=== PATIENT | female | born 1960 | race Caucasian/White ===

== ENCOUNTER 2017-03-11 06:36 | Emergency (ER) | payer BC ==
[~2017-03-11] VITALS: Ht 162.6 cm; Wt 62.9 kg
[~2017-03-11 06:36] MED LIST: BUSP10TA11 PO; INDLA80C PO; METF500T4 PO; PANT-47 PO; POTA10TA19 PO; SERT100T10 PO; SPIR50TA3 PO; THY15T PO
[2017-03-11] MEDS ORDERED: normal saline 1000ML IV soln IVB ONE (07:10)
[2017-03-11 07:17] LABS: CLARITY,URINE CLEAR (Clear); COLOR,URINE YELLOW (Yellow); GLUCOSE, URINE NEGATIVE (Neg); KETONES,URINE NEGATIVE (Neg); LEUKOCYTE ESTERASE ,URINE SMALL (Neg); NITRITES, URINE NEGATIVE (Neg); OCCULT BLOOD,URINE TRACE-INTACT (Neg); PROTEIN,URINE NEGATIVE (Neg); UA COLLECTION TYPE CLN CATCH MIDSTREAM; UROBILINOGEN,URINE 0.2 E.U/dL (0.2-1.0)
[2017-03-11 07:29] LABS: BACTERIA,URINE FEW /HPF (Neg); RBC,URINE 0-2 /HPF (0-2); SQUAMOUS EPITHELIAL CELL,UR FEW /LPF (FEW); WBC,URINE 0-4 /HPF (0-4)
[2017-03-11 07:45] LABS: BASOPHILS # (AUTO) 0.1 X10'3 (0-0.2); BASOPHILS % (AUTO) 0.7 % (0-1); EOSINOPHILS # (AUTO) 0.5 X10'3 (0-0.9); HEMATOCRIT 33.9 % (35.0-45.0); HEMOGLOBIN 11.3 g/dl (12.0-16.0); LYMPHOCYTES # (AUTO) 0.7 X10'3 (1.1-4.8); LYMPHOCYTES % (AUTO) 9.1 % (21-51); MEAN CORPUSCULAR HEMOGLOBIN 27.5 PG (27.0-31.0); MEAN CORPUSCULAR HGB CONC 33.2 % (33.0-36.5); MEAN CORPUSCULAR VOLUME 82.7 FL (78-98); MEAN PLATELET VOLUME 7.2 FL (7.4-10.4); MONOCYTES # (AUTO) 0.5 X10'3 (0-0.9); MONOCYTES % (AUTO) 6.7 % (2-12); NEUTROPHILS # (AUTO) 6.2 X10'3 (1.8-7.7); NEUTROPHILS % (AUTO) 77.5 % (42-75); PLATELET COUNT 206 X10'3 (140-440); RED CELL DISTRIBUTION WIDTH 17.9 % (11.5-14.5); WHITE BLOOD COUNT 8.1 X10'3 (4.5-11.0)
[2017-03-11 07:57] LABS: INR 1.1 INR; PROTHROMBIN TIME 11.4 SECONDS (9.0-12.0)
[2017-03-11 08:01] LABS: ALANINE AMINOTRANSFERASE 34 U/L (12-78); ALBUMIN 3.5 G/DL (3.4-5.0); ALBUMIN/GLOBULIN RATIO 0.9 (1.1-1.5); ALKALINE PHOSPHATASE 93 IU/L (46-116); ANION GAP 10 (8-16); ASPARTATE AMINO TRANSFERASE 36 U/L (10-37); BILIRUBIN,TOTAL 0.4 MG/DL (0.1-1.0); BLOOD UREA NITROGEN 20 MG/DL (7-18); BUN/CREATININE RATIO 20.2 (6.6-38.0); CALCIUM 9.9 MG/DL (8.5-10.1); CHLORIDE 106 MMOL/L (99-107); CREATININE 0.99 MG/DL (0.40-0.90); ETHANOL < 0.010 GM/DL (0.0-0.010); GLUCOSE 130 MG/DL (70-104); LIPASE 181 U/L (73-393); MAGNESIUM 1.4 MG/DL (1.5-2.4); POTASSIUM 3.9 MMOL/L (3.5-5.1); SODIUM 142 MMOL/L (135-145); TOTAL CARBON DIOXIDE 26.2 MMOL/L (24-32); TOTAL PROTEIN 7.4 G/DL (6.4-8.2); eGFR 58 ML/MIN
[2017-03-11] MEDS ORDERED: ONDA8TAB9 PO (09:20)
[2017-03-11 09:36] VITALS: BP 116/57
== END 2017-03-11 09:38 | disposition home or self-care (01) ==
LOC: ER 06:37
DX: R10.11 Right upper quadrant pain (principal); R11.2 Nausea with vomiting, unspecified; I10 Essential (primary) hypertension; E11.9 Type 2 diabetes mellitus without complications; Z79.84 Long term (current) use of oral hypoglycemic drugs; Z79.899 Other long term (current) drug therapy; Z88.0 Allergy status to penicillin; Z88.1 Allergy status to other antibiotic agents
CPT/HCPCS: 36415; 76700; 80053; 80320; 81001; 83690; 83735; 84100; 85025; 85610; 87077; 87088; 87186; 96360; 96361; 99285; J7030

== ENCOUNTER 2017-10-02 12:46 | Day surgery (SDC) | payer OTHER ==
[~2017-10-02] VITALS: Ht 162.6 cm; Wt 61.8 kg
[~2017-10-02 12:46] MED LIST changes: +METF-436 PO; -METF500T4 PO; +ONDA8TAB9 PO; -SPIR50TA3 PO; +SPIR50TA5 PO
[2017-10-02] MEDS ORDERED: fentaNYL/PF 50MCG/1 ML 2ML syringe ONE (13:01)
[2017-10-02] MEDS ORDERED: LIDOcaine Viscous 15ml cup ONE (13:02)
[2017-10-02] MEDS ORDERED: MIDAZolam 5mg/5ml vial ONE ×2 (13:02→14:05)
[2017-10-02] MEDS ORDERED: DULO-31 PO (13:15)
[2017-10-02] MEDS ORDERED: LORA10TA65 PO (13:15)
[2017-10-02] MEDS ORDERED: NALT50TA PO (13:15)
[2017-10-02 13:28] VITALS: BP 113/78
[2017-10-02 14:25] VITALS: BP 120/66
[2017-10-02 14:35] VITALS: BP 150/71
[2017-10-02 14:45] VITALS: BP 110/69
[2017-10-02 14:55] VITALS: BP 108/69
== END 2017-10-02 14:55 | disposition home or self-care (01) ==
LOC: GI LAB 12:46
PROVIDERS: ATTEND Internal Medicine Gastroenterology
DX: K29.50 Unspecified chronic gastritis without bleeding (principal); I85.00 Esophageal varices without bleeding; K76.6 Portal hypertension; K31.89 Other diseases of stomach and duodenum; M19.90 Unspecified osteoarthritis, unspecified site; I10 Essential (primary) hypertension; E11.9 Type 2 diabetes mellitus without complications; K21.9 Gastro-esophageal reflux disease without esophagitis; F10.21 Alcohol dependence, in remission; Z86.14 Personal history of Methicillin resistant Staphylococcus aureus infection; Z79.84 Long term (current) use of oral hypoglycemic drugs; Z88.1 Allergy status to other antibiotic agents; Z88.0 Allergy status to penicillin; Z88.3 Allergy status to other anti-infective agents; Z91.013 Allergy to seafood; Z87.891 Personal history of nicotine dependence; Z79.899 Other long term (current) drug therapy; Z88.8 Allergy status to other drugs, medicaments and biological substances; Z80.8 Family history of malignant neoplasm of other organs or systems
CPT/HCPCS: 43239; 43244; 99152; 99153; J2250; J3010; J7030; A4620; G0500

== ENCOUNTER 2018-09-17 13:14 | Day surgery (SDC) | payer OTHER ==
[~2018-09-17] VITALS: Ht 157.5 cm; Wt 62.7 kg
[~2018-09-17 13:14] MED LIST changes: +DULO-31 PO; +LORA10TA65 PO; +NALT50TA PO; -ONDA8TAB9 PO
[2018-09-17 13:20] VITALS: BP 124/68
[2018-09-17] MEDS ORDERED: fentaNYL/PF 50MCG/1 ML 2ML syringe ONE (13:34)
[2018-09-17] MEDS ORDERED: MIDAZolam 5mg/5ml vial ONE (13:34)
[2018-09-17] MEDS ORDERED: LIDOcaine Viscous 15ml cup ONE (13:35)
[2018-09-17] MEDS ORDERED: GABA-532 PO (13:52)
[2018-09-17] MEDS ORDERED: PROP40TA7 PO (13:52)
[2018-09-17] MEDS ORDERED: aleve PO (13:53)
[2018-09-17 14:46] VITALS: BP 123/70
[2018-09-17 14:56] VITALS: BP 113/65
[2018-09-17 15:06] VITALS: BP 111/59
== END 2018-09-17 15:17 | disposition home or self-care (01) ==
LOC: GI LAB 13:14
PROVIDERS: ATTEND Internal Medicine Gastroenterology
DX: I85.00 Esophageal varices without bleeding (principal); K22.8 Other specified diseases of esophagus; K76.6 Portal hypertension; K29.70 Gastritis, unspecified, without bleeding; K31.89 Other diseases of stomach and duodenum; D50.9 Iron deficiency anemia, unspecified
CPT/HCPCS: 43239; J2250; J3010; J7030; 99152; A4620; J7040

== ENCOUNTER 2022-04-18 14:52 | Day surgery (SDC) | payer BC, OTHER ==
[2022-04-13 15:33] LABS: BASOPHILS # (AUTO) 0.1 X10'3 (0-0.2); BASOPHILS % (AUTO) 1.3 % (0-1); EOSINOPHILS # (AUTO) 0.4 X10'3 (0-0.9); EOSINOPHILS % (AUTO) 9.2 % (0-6); HEMATOCRIT 36.2 % (35.0-45.0); HEMOGLOBIN 11.9 g/dl (12.0-16.0); LYMPHOCYTES # (AUTO) 0.8 X10'3 (1.1-4.8); LYMPHOCYTES % (AUTO) 18.2 % (21-51); MEAN CORPUSCULAR HEMOGLOBIN 27.1 PG (27.0-31.0); MEAN CORPUSCULAR HGB CONC 32.8 g/dL (33.0-36.5); MEAN CORPUSCULAR VOLUME 82.6 FL (78-98); MEAN PLATELET VOLUME 7.6 FL (7.4-10.4); MONOCYTES # (AUTO) 0.3 X10'3 (0-0.9); MONOCYTES % (AUTO) 6.5 % (2-12); NEUTROPHILS % (AUTO) 64.8 % (42-75); PLATELET COUNT 172 X10'3 (140-440); RED BLOOD COUNT 4.39 X10'6 (4.20-5.60); RED CELL DISTRIBUTION WIDTH 16.2 % (11.5-14.5); WHITE BLOOD COUNT 4.6 X10'3 (4.5-11.0)
[2022-04-13 15:38] LABS: ALBUMIN 4.4 G/DL (3.4-5.0); ANION GAP 8 (8-16); BLOOD UREA NITROGEN 18 MG/DL (7-18); BUN/CREATININE RATIO 17.5 (6.6-38.0); CALCIUM 10.1 MG/DL (8.5-10.1); CHLORIDE 103 MMOL/L (99-107); CREATININE 1.03 MG/DL (0.40-0.90); GLUCOSE 107 MG/DL (70-104); POTASSIUM 4.2 MMOL/L (3.5-5.1); SODIUM 138 MMOL/L (135-145); TOTAL CARBON DIOXIDE 26.7 MMOL/L (24-32); eGFR 54 ML/MIN
[2022-04-13 15:42] LABS: APTT 27 SECONDS (22-32)
[~2022-04-18] VITALS: Ht 157.5 cm; Wt 67.1 kg
[2022-04-18] VITALS (8 sets, daily range): BP systolic 105–122; BP diastolic 52–69
[~2022-04-18 14:52] MED LIST changes: -DULO-31 PO; +GABA-532 PO; -NALT50TA PO; -POTA10TA19 PO; +PROP40TA7 PO; +SERT-434 PO; -SERT100T10 PO; -SPIR50TA5 PO; +aleve PO
[2022-04-18] MEDS ORDERED: nitroGLYCERIN-Tridil 50MG/D5W 250 ML IV ONE (15:15)
[2022-04-18] MEDS ORDERED: heparin 1,000unit/ml 10ml vial 10 ML ONE (15:15)
[2022-04-18] MEDS ORDERED: iohexol 350MG/ML 100ml bottle IV ONE (15:15)
[2022-04-18] MEDS ORDERED: LIDOcaine 1% (10mg/ml) 2ml vial ONE (15:15)
[2022-04-18] MEDS ORDERED: verapamil 2.5 mg/ml inj IV ONE (15:15)
[2022-04-18] MEDS ORDERED: diphenhydrAMINE 25mg capsule PO PRN (17:05)
[2022-04-18] MEDS ORDERED: LORazepam 0.5 MG tablet PO PRN (17:05)
[2022-04-18] MEDS ORDERED: normal saline 1,000 ML IV SCH (17:05)
[2022-04-18] MEDS ORDERED: DAPA10TA PO (17:18)
[2022-04-18] MEDS ORDERED: ASCO-157 PO (17:18)
[2022-04-18] MEDS ORDERED: CALC-499 PO (17:18)
[2022-04-18] MEDS ORDERED: ATOR10TA70 PO (17:18)
[2022-04-18] MEDS ORDERED: ALLO100T PO (17:18)
[2022-04-18] MEDS ORDERED: VALA500T41 PO (17:18)
[2022-04-18] MEDS ORDERED: THYR90TA PO (17:18)
[2022-04-18] MEDS ORDERED: AMLO-708 PO (17:18)
[2022-04-18] MEDS ORDERED: VITA1TAB20 PO (17:18)
[2022-04-18] MEDS ORDERED: midazolam 1 mg/ML 2ml injection ONE (18:20)
[2022-04-18] MEDS ORDERED: fentaNYL/PF 50MCG/1 ML 2ML syringe ONE (18:20)
[2022-04-18] MEDS ORDERED: LIDOcaine 1% 30ml preserv. free vial ONE (18:24)
[2022-04-18 18:47] LABS: ISTAT HGB ART 11.2 g/dl (12.0-16.0); ISTAT Hct ART 33 %PCV (35-45); ISTAT O2 SATURATION ARTERIAL 93 % (95-98); ISTAT SOURCE ART
[2022-04-18] MEDS ORDERED: pneumococcal 23-VAL P-sac vacc 25 mcg/0.5ml vial IMVAC ONE (19:05)
[2022-04-18] MEDS ORDERED: HYDROcodone/acetaminophen 5mg/325mg tablet PO PRN (19:25)
[2022-04-18] MEDS ORDERED: HYDROcodone/acetaminophen 10/325mg tab PO PRN (19:25)
[2022-04-19 06:23] LABS: ISTAT Hct MIX 34 %PCV (35-45); ISTAT O2 SATURATION MIX VENOUS 68 % (60-80); ISTAT SOURCE VEN
== END 2022-04-18 20:55 | disposition home or self-care (01) ==
LOC: SSTAY O 14:52
PROVIDERS: ATTEND Student in an Organized Health Care Education/Training Program
DX: I35.0 Nonrheumatic aortic (valve) stenosis (principal); I10 Essential (primary) hypertension; E11.9 Type 2 diabetes mellitus without complications; E78.5 Hyperlipidemia, unspecified; F32.A Depression, unspecified; F10.21 Alcohol dependence, in remission; Z85.828 Personal history of other malignant neoplasm of skin; Z88.1 Allergy status to other antibiotic agents; Z88.8 Allergy status to other drugs, medicaments and biological substances; Z91.030 Bee allergy status; Z79.899 Other long term (current) drug therapy; Z79.01 Long term (current) use of anticoagulants; Z23 Encounter for immunization
CPT/HCPCS: 36415; 80048; 82803; 85014; 85025; 85610; 85730; 90471; 90732; 93005; 93456; 99152; A6258; C1751; C1769; C1894; J1644; J2250; J3010; J3490; J7030; Q0163; Q9967; A6402; A6449

== ENCOUNTER 2022-05-20 10:40 | Outpatient (CLI) | payer OTHER ==
[~2022-05-20 10:40] MED LIST changes: +ALLO100T PO; +AMLO-708 PO; +ASCO-157 PO; +ATOR10TA70 PO; +CALC-499 PO; +DAPA10TA PO; -GABA-532 PO; -INDLA80C PO; -METF-436 PO; -THY15T PO; +THYR90TA PO; +VALA500T41 PO; +VITA1TAB20 PO
[2022-05-20 11:26] LABS: BASOPHILS % (AUTO) 1.1 % (0-1); EOSINOPHILS # (AUTO) 0.1 X10'3 (0-0.9); EOSINOPHILS % (AUTO) 4.7 % (0-6); HEMATOCRIT 35.6 % (35.0-45.0); HEMOGLOBIN 11.9 g/dl (12.0-16.0); LYMPHOCYTES # (AUTO) 0.6 X10'3 (1.1-4.8); LYMPHOCYTES % (AUTO) 19.4 % (21-51); MEAN CORPUSCULAR HEMOGLOBIN 28.2 PG (27.0-31.0); MEAN CORPUSCULAR HGB CONC 33.5 g/dL (33.0-36.5); MEAN CORPUSCULAR VOLUME 84.3 FL (78-98); MEAN PLATELET VOLUME 7.2 FL (7.4-10.4); MONOCYTES # (AUTO) 0.2 X10'3 (0-0.9); NEUTROPHILS % (AUTO) 68.8 % (42-75); PLATELET COUNT 117 X10'3 (140-440); RED BLOOD COUNT 4.23 X10'6 (4.20-5.60); RED CELL DISTRIBUTION WIDTH 18.4 % (11.5-14.5); WHITE BLOOD COUNT 2.8 X10'3 (4.5-11.0)
[2022-05-20 11:39] LABS: APTT 29 SECONDS (22-32)
[2022-05-20 11:45] LABS: ALANINE AMINOTRANSFERASE 32 U/L (12-78); ALBUMIN/GLOBULIN RATIO 1.3 (1.1-1.5); ALKALINE PHOSPHATASE 131 IU/L (46-116); ANION GAP 9 (8-16); ASPARTATE AMINO TRANSFERASE 23 U/L (10-37); BILIRUBIN,TOTAL 0.3 MG/DL (0.1-1.0); BLOOD UREA NITROGEN 16 MG/DL (7-18); BUN/CREATININE RATIO 16.7 (6.6-38.0); CALCIUM 8.9 MG/DL (8.5-10.1); CHLORIDE 110 MMOL/L (99-107); CREATININE 0.96 MG/DL (0.40-0.90); GLUCOSE 115 MG/DL (70-104); POTASSIUM 3.9 MMOL/L (3.5-5.1); SODIUM 143 MMOL/L (135-145); TOTAL CARBON DIOXIDE 23.8 MMOL/L (24-32); eGFR 59 ML/MIN
[2022-05-20] MEDS ORDERED: IODIXANOL 320 MG/ML INFUS..BTL 100ML IV ONE (11:50)
[2022-05-20 12:04] LABS: ANISOCYTOSIS 2+; ELLIPTOCYTES 1+; PLATELET ESTIMATE DECREASED; TOTAL CELLS COUNTED 100
[2022-05-20 12:05] LABS: SCHISTOCYTES FEW
== END 2022-05-20 23:59 | disposition home or self-care (01) ==
LOC: RAD 10:40
PROVIDERS: ATTEND Internal Medicine Cardiovascular Disease
DX: Z01.818 Encounter for other preprocedural examination (principal); K74.60 Unspecified cirrhosis of liver; R16.1 Splenomegaly, not elsewhere classified; N20.0 Calculus of kidney; R06.02 Shortness of breath; I35.2 Nonrheumatic aortic (valve) stenosis with insufficiency; I65.29 Occlusion and stenosis of unspecified carotid artery; Z87.891 Personal history of nicotine dependence; Z79.899 Other long term (current) drug therapy
CPT/HCPCS: 36415; 71046; 71275; 74174; 80053; 85007; 85025; 85610; 85730; 94010; 94727; 94729; J3490; Q9967

== ENCOUNTER 2022-07-21 05:18 | Inpatient (IN) | payer OTHER ==
[2022-07-13 11:57] LABS: BASOPHILS % (AUTO) 0.8 % (0-1); EOSINOPHILS # (AUTO) 0.2 X10'3 (0-0.9); EOSINOPHILS % (AUTO) 3.6 % (0-6); LYMPHOCYTES # (AUTO) 0.5 X10'3 (1.1-4.8); LYMPHOCYTES % (AUTO) 11.3 % (21-51); MEAN CORPUSCULAR HEMOGLOBIN 28.6 PG (27.0-31.0); MEAN CORPUSCULAR HGB CONC 33.3 g/dL (33.0-36.5); MEAN CORPUSCULAR VOLUME 85.9 FL (78-98); MEAN PLATELET VOLUME 7.7 FL (7.4-10.4); MONOCYTES # (AUTO) 0.3 X10'3 (0-0.9); MONOCYTES % (AUTO) 7.3 % (2-12); NEUTROPHILS # (AUTO) 3.6 X10'3 (1.8-7.7); PRE OP HEMATOCRIT 37.8 % (35.0-45.0); PRE OP HEMOGLOBIN 12.6 g/dL (12.0-16.0); PRE OP PLATELET COUNT 136 X10'3 (140-440); RED CELL DISTRIBUTION WIDTH 18.9 % (11.5-14.5)
[2022-07-13 12:05] LABS: CLARITY,URINE CLEAR (Clear); COLOR,URINE YELLOW (Yellow); GLUCOSE, URINE >=1000 mg/dl (Neg); KETONES,URINE NEGATIVE (Neg); LEUKOCYTE ESTERASE ,URINE NEGATIVE (Neg); NITRITES, URINE NEGATIVE (Neg); OCCULT BLOOD,URINE SMALL (Neg); PROTEIN,URINE NEGATIVE (Neg)
[2022-07-13 12:07] LABS: UA COLLECTION TYPE CLN CATCH MIDSTREAM
[2022-07-13 12:11] LABS: PRE OP INR 1.1 INR; PRE OP PROTIME 11.6 SECONDS (9.0-12.0)
[2022-07-13 12:14] LABS: BACTERIA,URINE 1+ /HPF (Neg); MUCUS STRANDS FEW /LPF (Neg); SQUAMOUS EPITHELIAL CELL,UR FEW /LPF (FEW); WBC CLUMPS,URINE FEW /HPF (NEGATIVE)
[2022-07-13 12:22] LABS: BLOOD UREA NITROGEN 19 MG/DL (7-18); BUN/CREATININE RATIO 20.9 (10.0-20.0); CHLORIDE 107 MMOL/L (99-107); CREATININE 0.91 MG/DL (0.40-0.90); PRE OP ANION GAP 10 (8-16); PRE OP GLUCOSE 129 MG/DL (70-104); PRE OP POTASSIUM 3.8 MMOL/L (3.4-5.1); PRE OP SODIUM 142 MMOL/L (135-145); TOTAL CARBON DIOXIDE 25.3 MMOL/L (24-32)
[2022-07-13 12:23] LABS: ALBUMIN/GLOBULIN RATIO 1.3 (1.1-1.5); ALKALINE PHOSPHATASE 101 IU/L (46-116); CALCIUM 8.3 MG/DL (8.5-10.1); PRE OP ALT 34 U/L (30-65); PRE OP AST 45 U/L (10-37); PRE OP BILIRUB, TOTAL 0.4 MG/DL (0.0-1.0); eGFR 63 ML/MIN
[2022-07-13 12:24] LABS: ANISOCYTOSIS 2+; ELLIPTOCYTES 1+; PLATELET ESTIMATE DECREASED; TEAR DROP CELLS FEW
[2022-07-13 13:20] LABS: HEMOGLOBIN A1C 6.1 % (4.5-6.2)
[~2022-07-21] VITALS: Ht 157.5 cm; Wt 66.2 kg
[2022-07-21] VITALS (22 sets, daily range): BP systolic 95–142; BP diastolic 49–68
[~2022-07-21 05:18] MED LIST changes: +CALC0.2511 PO; +LEVO125T68 PO; -THYR90TA PO; -VALA500T41 PO; -VITA1TAB20 PO; -aleve PO; +ringers solution, lacted 1,000 ML IV SCH
[2022-07-21] MEDS ORDERED: cefazolin 2gm/D5W 100mL 100 ML IV ONE (05:30)
[2022-07-21] MEDS ORDERED: famotidine 20mg tablet PO ONE (05:30)
[2022-07-21] MEDS ORDERED: ondansetron/PF 4mg/2ml inj IV PRN ×3 (05:30→08:20)
[2022-07-21] MEDS ORDERED: phenylephrine inj 50 MG in normal saline 250ml IV solN IV SCH (05:30)
[2022-07-21] MEDS ORDERED: DOCUMENT DATE & TIME OF BETA-BLOCKER PO ONE (05:30)
[2022-07-21] MEDS ORDERED: aspirin 325mg tablet PO ONE (05:30)
[2022-07-21] MEDS ORDERED: nitroPRUSSIDE (NIPRIDE) (200MCG/ML) 100ML Drip IV SCH (05:30)
[2022-07-21] MEDS ORDERED: vancomycin/NS 1 GM in NS 250 ML IV ONE (05:30)
[2022-07-21] MEDS ORDERED: LIDOcaine 1% (10mg/ml) 2ml vial ONE ×2 (06:21→07:02)
[2022-07-21] MEDS ORDERED: iohexol 350MG/ML 100ml bottle IV ONE (06:24)
[2022-07-21] MEDS ORDERED: LIDOcaine 1% (10mg/ml)w/preservative inj. 20ml MDV ONE (06:24)
[2022-07-21] MEDS ORDERED: heparin 1,000 UNITS/NS 500ml 1,500 ML ONE (06:28)
[2022-07-21] MEDS ORDERED: protamine sulfate 10mg/ml inj. ONE (06:32)
[2022-07-21] MEDS ORDERED: LIDOcaine 1% 30ml preserv. free vial ONE (06:53)
[2022-07-21] MEDS ORDERED: midazolam 1 mg/ML 2ml injection ONE (07:07)
[2022-07-21] MEDS ORDERED: fentaNYL/PF 50MCG/1 ML 2ML syringe ONE (07:07)
[2022-07-21] MEDS ORDERED: propofol inj 20 ML IV ONE ×2 (07:07)
[2022-07-21] MEDS ORDERED: heparin 1,000unit/ml 10ml vial 10 ML ONE (07:11)
[2022-07-21] MEDS ORDERED: ringers solution, lacted 1,000 ML IV SCH (07:55)
[2022-07-21] MEDS ORDERED: morphine 4 MG/ML inj SYRINge IV PRN (07:55)
[2022-07-21] MEDS ORDERED: meperidine/PF 25mg/ml syringe IV PRN ×3 (07:55)
[2022-07-21] MEDS ORDERED: proCHLORperazine 10 MG/2 ml inj IV PRN ×2 (07:55→08:20)
[2022-07-21] MEDS ORDERED: morphine 2 MG/ML inj. syringe IV PRN (07:55)
[2022-07-21] MEDS ORDERED: amLODIPine 5mg tablet PO SCH (08:00)
[2022-07-21] MEDS ORDERED: levoTHYROXINE 125mcg tablet PO SCH (08:00)
[2022-07-21] MEDS ORDERED: VITAMIN D3 PO SCH (08:00)
[2022-07-21] MEDS ORDERED: pantoprazole 40mg Tablet.DR PO SCH (08:00)
[2022-07-21] MEDS ORDERED: CALCIUM CITRATE PO SCH (08:00)
[2022-07-21] MEDS ORDERED: ascorbic acid 500mg tablet PO SCH (08:00)
[2022-07-21] MEDS ORDERED: loratadine 10mg tablet PO SCH (08:00)
[2022-07-21] MEDS ORDERED: hydrALAZINE 20mg/ml inj. IV PRN (08:20)
[2022-07-21] MEDS ORDERED: ALPRAZolam 0.25mg tablet PO PRN (08:20)
[2022-07-21] MEDS ORDERED: potassium CL 10mEq/100ml bag 100 ML IV PRN (08:20)
[2022-07-21] MEDS ORDERED: diphenhydrAMINE 25mg capsule PO PRN (08:20)
[2022-07-21] MEDS ORDERED: potassium Cl 20mEq/100mL bag 100 ML IV PRN (08:20)
[2022-07-21] MEDS ORDERED: labetalol 20mg/4ml (5mg/ml) syringe IV PRN (08:20)
[2022-07-21] MEDS ORDERED: potassium Cl 40MEQ/270ML bag 250 ML IV PRN (08:20)
[2022-07-21] MEDS ORDERED: potassium Cl 40MEQ/1/2NS 520ml 520 ML IV PRN (08:20)
[2022-07-21] MEDS ORDERED: docusate sod 100mg capsule PO PRN (08:20)
[2022-07-21] MEDS ORDERED: potassium Cl 20 mEq SR tablet PO PRN (08:20)
[2022-07-21] MEDS ORDERED: magnesium 2GM in 50ml NS 50 ML IV PRN (08:20)
[2022-07-21] MEDS ORDERED: magnesium 4gm in 100ml NS 100 ML IV PRN (08:20)
[2022-07-21] MEDS ORDERED: acetaminophen 325mg tablet PO PRN (08:20)
[2022-07-21] MEDS ORDERED: pantoprazole 40mg Tablet.DR PO PRN (08:20)
[2022-07-21] MEDS ORDERED: normal saline 1000ml 1,000 ML IV SCH (08:20)
--- NOTE | 2022-07-21 08:26 | NUR ---
Received from OR via HOSPITAL BED TO RR 5 , accompanied by Anesthesiologist DR FLETCHER and report given by Anesthesiolgist. PT PRESENTS WITH PIV 20G R WRIST, ART LINE LEFT WRIST, LR RUNNING AT 100MLS/HR, SPO2 100% RA, NEURO CHECK, PALPABLE PEDAL PULSES. Addendum: 07/21/22 at 0848 by Isa Davidson RN, RN Amended: Links added.
--- NOTE | 2022-07-21 09:30 | NUR ---
ART LINE REMOVED FROM LEFT WRIST, PT TOLERATED WELL. 2X2 WITH COBAN WRAP. Addendum: 07/21/22 at 1034 by Isa Davidson RN, RN Amended: Links added.
--- NOTE | 2022-07-21 09:46 | NUR ---
Report called to receiving nurse BRENDA JOYCE. Transferred via HOSPITAL BED TO RRON 3024A. BED IN LOW LOCKED POSITIONS WITH CALL LIGHT IN REACH, PT HOOKED UP TO TELE BOX. Belongings SENT TO ROOM 3024A 2 PT BELONGINGS. Special Issues communicated to receiving nurse. Addendum: 07/21/22 at 0959 by sIa Davidson RN, RN Amended: Links added.
[2022-07-21] MEDS: ceFAZolin 1GM/D5W- ADD-VANTAGE 50 ML IV SCH (16:00)
[2022-07-21] MEDS: sod chloride 0.9% 10ml flush syringe IV SCH (16:00)
--- NOTE | 2022-07-21 18:00 | NUR ---
Patient in room PCU 3024. I have received report from Catalino JOYCE and had the opportunity to ask questions and assume patient care.
[2022-07-21] MEDS: busPIRone 5mg tablet PO SCH (20:33)
[2022-07-21] MEDS: vancomycin/NS 1 GM ADD-VANTAGE 250 ML IV SCH (20:33)
[2022-07-21] MEDS: HYDROcodone/acetaminophen 5mg/325mg tablet PO PRN (20:35)
[2022-07-21] MEDS ORDERED: sertraline 50mg tablet PO SCH (21:00)
[2022-07-21] MEDS ORDERED: allopurinol 100mg tablet PO SCH (21:00)
[2022-07-21] MEDS ORDERED: propranolol 40mg tablet PO SCH (21:00)
[2022-07-21] MEDS ORDERED: atorvastatin 10mg tablet PO SCH (21:00)
[2022-07-22] MEDS: ceFAZolin 1GM/D5W- ADD-VANTAGE 50 ML IV SCH ×2 (01:51→08:31)
[2022-07-22] MEDS: HYDROcodone/acetaminophen 5mg/325mg tablet PO PRN ×2 (01:51→08:32)
[2022-07-22 02:00] VITALS: BP 58/49
[2022-07-22 06:06] VITALS: BP 91/47
--- NOTE | 2022-07-22 06:48 | NUR ---
Problems reprioritized. Patient report given, questions answered & plan of care reviewed with Gareth JOYCE.
[2022-07-22 07:10] LABS: BASOPHILS % (AUTO) 0.9 % (0-1); EOSINOPHILS # (AUTO) 0.2 X10'3 (0-0.9); EOSINOPHILS % (AUTO) 3.6 % (0-6); HEMATOCRIT 37.7 % (35.0-45.0); HEMOGLOBIN 12.7 g/dl (12.0-16.0); LYMPHOCYTES # (AUTO) 0.7 X10'3 (1.1-4.8); LYMPHOCYTES % (AUTO) 14.9 % (21-51); MEAN CORPUSCULAR HEMOGLOBIN 28.8 PG (27.0-31.0); MEAN CORPUSCULAR HGB CONC 33.7 g/dL (33.0-36.5); MEAN CORPUSCULAR VOLUME 85.4 FL (78-98); MONOCYTES # (AUTO) 0.5 X10'3 (0-0.9); MONOCYTES % (AUTO) 10.9 % (2-12); NEUTROPHILS # (AUTO) 3.3 X10'3 (1.8-7.7); NEUTROPHILS % (AUTO) 69.7 % (42-75); PLATELET COUNT 136 X10'3 (140-440); RED BLOOD COUNT 4.41 X10'6 (4.20-5.60); WHITE BLOOD COUNT 4.7 X10'3 (4.5-11.0)
[2022-07-22 07:38] LABS: ALANINE AMINOTRANSFERASE 21 U/L (12-78); ALBUMIN 3.7 G/DL (3.4-5.0); ALBUMIN/GLOBULIN RATIO 1.2 (1.1-1.5); ALKALINE PHOSPHATASE 87 IU/L (46-116); ANION GAP 8 (8-16); ASPARTATE AMINO TRANSFERASE 29 U/L (10-37); BILIRUBIN,TOTAL 0.5 MG/DL (0.1-1.0); BLOOD UREA NITROGEN 16 MG/DL (7-18); CALCIUM 9.3 MG/DL (8.5-10.1); CHLORIDE 104 MMOL/L (99-107); GLUCOSE 104 MG/DL (70-104); MAGNESIUM 2.2 MG/DL (1.5-2.4); POTASSIUM 4.1 MMOL/L (3.5-5.1); SODIUM 140 MMOL/L (135-145); TOTAL CARBON DIOXIDE 27.7 MMOL/L (24-32); TOTAL PROTEIN 6.8 G/DL (6.4-8.2); eGFR 56 ML/MIN
[2022-07-22] MEDS ORDERED: pantoprazole 40mg Tablet.DR PO SCH (08:00)
[2022-07-22] MEDS ORDERED: ascorbic acid 500mg tablet PO SCH (08:00)
[2022-07-22] MEDS ORDERED: amLODIPine 5mg tablet PO SCH (08:00)
[2022-07-22] MEDS ORDERED: loratadine 10mg tablet PO SCH (08:00)
[2022-07-22] MEDS ORDERED: levoTHYROXINE 125mcg tablet PO SCH (08:00)
[2022-07-22] MEDS ORDERED: calcitriol 0.25mcg capsule PO SCH (08:00)
[2022-07-22] MEDS ORDERED: aspirin 81mg tab.chew PO SCH (08:30)
[2022-07-22] MEDS: vancomycin/NS 1 GM ADD-VANTAGE 250 ML IV SCH (08:31)
[2022-07-22] MEDS: sod chloride 0.9% 10ml flush syringe IV SCH ×2 (08:33)
[2022-07-22] MEDS: busPIRone 5mg tablet PO SCH (08:34)
[2022-07-22] MEDS ORDERED: ASPI81TA53 PO (10:36)
[2022-07-22 11:12] VITALS: BP 112/43
== END 2022-07-22 14:19 | disposition home or self-care (01) | DRG 266 ==
LOC: PAS IN 05:18 → PCU 3S 10:24
PROVIDERS: ADMIT Internal Medicine Cardiovascular Disease; ATTEND Internal Medicine Cardiovascular Disease
PROC: B41D1ZZ Fluoroscopy of Aorta and Bilateral Lower Extremity Arteries using Low Osmolar Contrast (ICD-10-PCS; 2022-07-21)
PROC: 02RF38Z Replacement of Aortic Valve with Zooplastic Tissue, Percutaneous Approach (ICD-10-PCS; principal; 2022-07-21 07:09)
DX: I35.0 Nonrheumatic aortic (valve) stenosis (principal); Z00.6 Encounter for examination for normal comparison and control in clinical research program; I50.33 Acute on chronic diastolic (congestive) heart failure; E11.9 Type 2 diabetes mellitus without complications; E78.5 Hyperlipidemia, unspecified; I11.0 Hypertensive heart disease with heart failure; K70.30 Alcoholic cirrhosis of liver without ascites; K70.40 Alcoholic hepatic failure without coma; R00.1 Bradycardia, unspecified; R55 Syncope and collapse; Z79.899 Other long term (current) drug therapy
CPT/HCPCS: 33361; 36415; 71045; 71046; 76937; 80053; 81001; 82948; 83036; 83735; 83880; 84443; 85008; 85025; 85347; 85610; 85730; 86885; 86900; 86901; 86920; 87081; 87088; 93005; 93308; A4615; A4618; A6258; A6449; C1756; C1760; C1769; C1894; G0378; J0690; J1644; J2250; J2370; J2704; J2720; J3010; J3370; J3475; J3490; J7030; J7040; J7050; J7120; Q9967

== ENCOUNTER → 2023-06-16 | Outpatient (CLI) | payer OTHER ==
[~2023-06-16] MED LIST changes: +ASPI81TA53 PO; -ringers solution, lacted 1,000 ML IV SCH
== END | disposition home or self-care (01) ==
LOC: MRI 08:43
PROVIDERS: ATTEND Anesthesiology Pain Medicine
DX: M47.812 Spondylosis without myelopathy or radiculopathy, cervical region (principal); M48.02 Spinal stenosis, cervical region; M75.41 Impingement syndrome of right shoulder; G89.4 Chronic pain syndrome; M25.78 Osteophyte, vertebrae
CPT/HCPCS: 72141

== ENCOUNTER 2024-12-20 08:42 | Emergency (ER) | payer MEDICARE, OTHER ==
[~2024-12-20] VITALS: Ht 157.5 cm; Wt 49.6 kg
[2024-12-20 08:46] VITALS: BP 142/46; PULSE 66; RESP 18; O2SAT 100
--- NOTE | 2024-12-20 09:18 | Physician Documentation ---
History of Present Illness ~ Chief Complaint: Bite-insect Stated Complaint: INSECT BITE Time Seen by MD: 08:58 Primary Medical Doctor: Dr. Nikki Polanco MD Source: patient Mode of Arrival: POV Exam Limitations: no limitations HPI 64-year-old female with what she believes to be a bug bite to the anterior right shoulder she noticed Monday night she has seen her primary care provider yesterday who tried to collect a culture she was started on antibiotics but was instructed to go to the ER if it got any worse. Patient is unaware of what antibiotics she started. Patient is unaware of what could have bitten her shoulder. Tetanus within 5 years?: No Medication Reconciliation Allergies: Coded Allergies: bee venom protein (honey bee) (Unverified Allergy, Severe, anaphylaxis, 12/20/24) amoxicillin (Verified Allergy, Mild, RASH, 12/20/24) celecoxib (Verified Allergy, Mild, HIVES, 12/20/24) Scheduled Allopurinol* (Zyloprim*), 1 TAB PO QPM, (Reported) Amlodipine Besylate (Amlodipine Besylate), 1 TAB PO QAM, (Reported) Ascorbic Acid (Vitamin C), 1 TAB PO DAILY, (Reported) Aspirin (Children's Aspirin), 81 MG PO Q24H@0830 Atorvastatin Calcium (Atorvastatin Calcium), 1 TAB PO HS, (Reported) Buspirone Hcl* (Buspar*), 1 TAB PO BID, (Reported) Calcitriol (Calcitriol), 1 CAP PO QAM, (Reported) Calcium Citrate/Vitamin D3 (Citracal + D Caplet), 2 TAB PO DAILY, (Reported) Dapagliflozin Propanediol (Farxiga), 1 TAB PO QAM, (Reported) Levothyroxine Sodium (Levoxyl), 1 TAB PO QAM, (Reported) Loratadine (Claritin), 10 MG PO DAILY, (Reported) Pantoprazole Sodium (PROTONIX tablet), 1 TAB PO QAM, (Reported) Propranolol Hcl (Propranolol Hcl), 1 TAB PO QPM, (Reported) Sertraline HCl (Sertraline HCl), 1 TAB PO QPM, (Reported) Past Medical History Past Medical History: Hypertension, Cirrohsis, Pancreatitis, Diabetes, Arthritis Past Surgical History: noncontributory Patient History: (CAD) Coronary arteriosclerosis FATHER, , Age: 69, Cause: Heart disease, Onset:60 years & older (CVA) Cerebrovascular accident MOTHER, , Age: 58, Cause: Lung cancer, Onset:50's - 60 (Cancer) Malignant carcinoid tumor MOTHER, , Age: 58, Cause: Lung cancer, Onset:60 years & older Alcohol Use: Heavy Drug Use: none Lives with: Family Lives In: Home Occupation: employed Review of Systems All Other Systems at this time: Reviewed and Negative Integumentary: Reports: see HPI Physical Exam Vital Signs: RN Vital Signs have been reviewed: Yes, Temperature: 98.1, Source: Oral, Heart Rate: 66, Respiratory Rate: 18, BP: 142/46, Pulse Oximetry: 100, Weight: 49.600 Oxygen Flow Rate: 0 Physical Exam General: Alert, no apparent distress. HEENT: moist mucous membranes. Neck: Full range of motion. Respiratory: No respiratory distress speaking in full sentences Chest: No accessory muscle use. Cardiovascular: Appears well perfused Neurologic: Oriented x4. Psychiatric: Normal mood and affect. Skin: 6 x 4 cm carbuncle appearing abscess to the right anterior shoulder minimal drainage. With surrounding erythema Procedures I & D Procedure : Site: Right shoulder Anesthesia: Lidocaine w/ Epi Volume Anesthetic (mls): 5 Blade Size: 11 Prep/Supplies: betadine prep, irrigated Incision: pus drained, blood drained Tolerated Procedure Well?: yes, no complications Progress Results/Orders Results/Orders Orders - CELESTE PAULSON NP Laceration/I&D Tray Set Up (12/20/24 09:15) Completed Orders - CELESTE PAULSON COUNSELING PSYCHOLOGIST Lidocaine 1% W/Epi 1:100,000 (Xylocaine (12/20/24 09:15) Vital Signs 12/20/24 08:46 Temp 98.1 Pulse 66 Resp 18 B/P (MAP) 142/46 Pulse Ox 100 O2 Flow Rate 0 Medical Decision Making Findings Abscess to right shoulder minimal draining I and D performed pus draining open carbuncle no packing patient will take doxycycline which was prescribed by her primary care yesterday patient will follow up with primary care on Monday Departure Time of Disposition: 10:43 Disposition: 01 HOME / SELF CARE / HOMELESS Impression: Primary Impression: Insect bites Additional Impression: Abscess Discharge Instructions: Insect Bite, Adult, [id number] Additional Instructions: Follow up with primary care for continuation of monitoring abscess. Take antibiotics as prescribed Referrals: NO PRIMARY CARE PROVIDER (PCP) Education Educated: Patient Educated regarding: diagnosis, treatment, need for follow up Signature Scribe Signature: No scribe Attestation: The note accurately reflects work and decisions made by me.Celeste Paulson - ART MANAGER 12/20/24 09:26 CELESTE PAULSON NP Dec 20, 2024 09:17
[2024-12-20] MEDS: LIDOcaine 1% W/epiNEPHrine 1:100,000 20ml vial IJ ONE (10:08)
[2024-12-20 10:45] VITALS: TEMP 98.1
== END 2024-12-20 10:48 | disposition home or self-care (01) ==
LOC: ER 08:42
DX: L02.413 Cutaneous abscess of right upper limb (principal); S41.051A Open bite of right shoulder, initial encounter; E11.9 Type 2 diabetes mellitus without complications; I10 Essential (primary) hypertension; I25.10 Atherosclerotic heart disease of native coronary artery without angina pectoris; M19.90 Unspecified osteoarthritis, unspecified site; F10.90 Alcohol use, unspecified, uncomplicated; Z91.030 Bee allergy status; Z87.19 Personal history of other diseases of the digestive system; Z88.1 Allergy status to other antibiotic agents; Z79.82 Long term (current) use of aspirin; Z79.899 Other long term (current) drug therapy; Y90.9 Presence of alcohol in blood, level not specified; W57.XXXA Bitten or stung by nonvenomous insect and other nonvenomous arthropods, initial encounter; Y93.89 Activity, other specified; Y92.89 Other specified places as the place of occurrence of the external cause; Y99.8 Other external cause status
CPT/HCPCS: 10060; 99282; A6402; Z7610; A6449